=== PATIENT | female | born 1970 | race Caucasian/White ===

== ENCOUNTER 2017-07-08 16:51 | Emergency (ER) | payer BC, OTHER ==
[~2017-07-08 16:51] MED LIST: ISOVUE-370 76%-LOCM 1 ML ONE; Iopamidol 370 76% 50 ML VIAL FS ONE
[2017-07-08] MEDS ORDERED: Ondansetron HCl/PF 4 MG/2 ML Vial ONE (19:12)
[2017-07-08 19:20] LABS: #Basophils 0.1 thou/uL (0.0-0.2); #Eosinphils 0.2 thou/uL (0.0-0.7); #Lymphocytes 2.1 thou/uL (1.20-3.40); #Monocytes 0.4 thou/uL (0.11-0.59); #Neutrophils 3.3 thou/uL (1.40-6.50); %Basophils 1.1 % (0.0-1.0); %Eosinophils 3.3 % (0.0-10.0); %Lymphocytes 34.5 % (21.0-51.0); %Monocytes 6.6 % (0.0-10.0); Hematocrit 45.4 % (36.0-47.0); Mean Platelet Volume 8.9 fL (7.4-10.4); Red Blood Cell (RBC) Count 4.77 mill/uL (4.20-5.40); White Blood Cell (WBC) Count 6.1 thou/uL (4.8-10.8)
[2017-07-08 19:45] LABS: ALT (SGPT) 10 U/L (8-55); AST (SGOT) 12 U/L (5-34); Alkaline Phosphatase 62 U/L (40-150); Anion Gap 12 mmol/L (10-20); BUN (Urea Nitrogen) 13 mg/dL (7.0-18.7); Bilirubin, Total 0.7 mg/dL (0.2-1.2); Calc. Creatinine Clearance 0 mL/min (70-130); Calcium 9.5 mg/dL (7.8-10.44); Carbon Dioxide 27 mmol/L (22-29); Chloride 105 mmol/L (98-107); Estimated GFR-MDRD 83; Globulin 2.9 g/dL (2.4-3.5); Lipase 19 U/L (8-78); Protein, Total 6.8 g/dL (6.0-8.3)
--- NOTE | 2017-07-08 20:43 | RAD ---
AP VIEW CHEST WELL SUPINE AND UPRIGHT VIEWS OF THE ABDOMEN 07/08/17 HISTORY: Vomiting. AP view chest is unremarkable. No evidence of acute intrathoracic abnormality is seen. Two views abdomen demonstrates a gastric sleeve in place. No evidence of abdominal obstruction or ile us seen. No dilated loops of bowel seen. No evidence of free intraperitoneal air seen. IMPRESSION: Unremarkable AP view chest and two views abdomen. POS: [facility]
--- NOTE | 2017-07-08 22:47 | CT ---
CT ABDOMEN AND PELVIS WITH CONTRAST 07/08/17 COMPARISON: None. HISTORY: Inability to tolerate p.o. Patient had a laparoscopic band for weight loss 1.5 years ago. Patient has had worsening symptoms over the last three days. TECHNIQUE: Multiple contiguous axial images were obtained in a CT of the abdomen and pelvis with contrast. Coron al reformats were performed. FINDINGS: A gastric band is seen at the gastroesophageal junction. There is distention of the distal esophagus with material seen in the distal esophagus. There may be a small amount of enteric contrast that was administered. This is in the proximal small bowel loops and predominantly within the distal esophagus . No free air, free fluid, or stranding changes are seen in the abdomen or pelvis. The liver, gallbladder, kidneys, adrenal glands, spleen, and pancreas are unremarkable. The large and small bowel are unremarkable. The appendix is normal. The uterus is enlarged with multiple hypodense lesions measuring up to 2.7 cm in size, which likely r epresents fibroids. No abdominal or pelvic lymphadenopathy are seen. The osseous structures, visualized inferior thorax, and abdominal wall soft tissues are unremarkable. IMPRESSION: 1. Status post gastric band placement. This appears in appropriate position at the gastroesophag eal junction. There is enlargement of the distal esophagus. 2. Fibroid uterus. POS: [facility]
== END 2017-07-08 23:10 | disposition home or self-care (01) ==
LOC: ERS 16:51
DX: K95.09 Other complications of gastric band procedure (principal); J45.909 Unspecified asthma, uncomplicated
CPT/HCPCS: 36415; 74022; 74177; 80053; 83690; 85025; 96374; J2405